=== PATIENT | male | born 1970 | race Caucasian/White ===

== ENCOUNTER 2022-07-09 08:34 | Day surgery (SDC) | payer BC ==
[~2022-07-09 08:34] MED LIST: Midazolam 1 MG/ML 2 ML SDV ONE; Propofol 200 MG/20 ML SDV ONE; fentaNYL 50 MCG/ML SDV ONE
[2022-07-09] MEDS ORDERED: Lactated Ringers 1,000 ML IV SCH (09:00)
[2022-07-09] MEDS ORDERED: Propofol 200 MG/20 ML SDV ONE (11:05)
== END 2022-07-09 12:25 | disposition home or self-care (01) ==
LOC: JP.SDS 08:34
PROVIDERS: ATTEND Student in an Organized Health Care Education/Training Program
DX: Z12.11 Encounter for screening for malignant neoplasm of colon (principal); D12.5 Benign neoplasm of sigmoid colon; Z79.899 Other long term (current) drug therapy
CPT/HCPCS: 45385; J2250; J2704; J3010; J7120; 88305